=== PATIENT | female | born 1945 | race African-American/Black ===

== ENCOUNTER 2021-10-01 09:42 | Inpatient (IN) | payer OTHER, MEDICAID ==
[2021-10-01] MEDS ORDERED: Sodium Bicarb 50 MEQ/50 ML Abboject 8.4% SYRINGE ONE ×3 (09:44→11:59)
[2021-10-01] MEDS ORDERED: Calcium Chloride 1 GM/10 ML Abboject SYRINGE ONE (09:44)
[2021-10-01] MEDS ORDERED: Fentanyl 100 MCG/2 ML VIAL ONE ×2 (09:53→10:00)
[2021-10-01] MEDS ORDERED: Midazolam HCl 2 mg/2 ml Vial ONE ×2 (09:55→10:00)
[2021-10-01] MEDS ORDERED: Fentanyl CADD 100 ML IV SCH (10:00)
[2021-10-01 10:27] LABS: PTT 63.3 sec (22.9-36.1)
[2021-10-01] MEDS ORDERED: Norepinephrine 4 MG/4 ML VIAL ONE ×2 (10:32→10:34)
[2021-10-01 10:39] LABS: Prothrombin Time Greater than 150.0 sec (12.0-14.7)
[2021-10-01 10:42] LABS: Analyzer IN Cardio ER; Base Excess -27.5 mEq/L (-2.0 to +3.0); Calcium, Ionized (venous) 1.49 mmol/L (1.16-1.32); Chloride (VBG) 106 mmol/L (98-106); Hemoglobin (Hb) 4.1 g/dL (11.7-16.1); Potassium (VBG) 6.48 mmol/L (3.70-5.30); Sodium 141.5 mmol/L (133-146)
[2021-10-01 10:43] LABS: Actual Bicarbonate (HCO3v) 6 mEq/L (22-28); pH (venous) 6.65 (7.32-7.43)
[2021-10-01 10:46] LABS: ALT (SGPT) 437 U/L (8-55); AST (SGOT) 532 U/L (5-34); Albumin 2.8 g/dL (3.4-4.8); Alkaline Phosphatase 47 U/L (40-110); BUN (Urea Nitrogen) 32 mg/dL (9.8-20.1); Bilirubin, Total 0.4 mg/dL (0.2-1.2); CK (CPK) 480 U/L (29-168); Calc. Creatinine Clearance 0 mL/min (70-130); Calcium 11.7 mg/dL (7.8-10.44); Chloride 106 mmol/L (98-107); Estimated GFR 39; Glucose 177 mg/dL (83-110); Potassium 6.4 mmol/L (3.5-5.1); Protein, Total 4.8 g/dL (5.8-8.1); Sodium 144 mmol/L (136-145)
[2021-10-01 10:51] LABS: Hemoglobin 3.1 g/dL (12.0-16.0); Mean Corpuscular HGB CONC 29.8 g/dL (32.0-36.0); Mean Corpuscular Hemoglobin 25.3 pg (27.0-31.0); Mean Corpuscular Volume 85.1 fL (78.0-98.0); Mean Platelet Volume 8.4 fL (7.4-10.4); Platelet Count 189 thou/uL (130-400); RBC Distribution Width 23.8 % (11.5-14.5); Red Blood Cell (RBC) Count 1.22 mill/uL (4.20-5.40); Reflex for Review?? YES; White Blood Cell (WBC) Count 14.8 thou/uL (4.8-10.8)
[2021-10-01 10:53] LABS: SARS-CoV-2 NAA Rapid Test Not Detected (NotDetected)
[2021-10-01 10:53] LABS: Carbon Dioxide Less than 8 mmol/L (23-31)
[2021-10-01 11:02] LABS: CKMB 26.1 ng/mL (0-6.6)
[2021-10-01 11:15] LABS: Anisocytosis MODERATE=16-30 cells (100X) (0-5/hpf); Band 5 % (5-11); Elliptocytes SLIGHT = 2-5 cells (100X) (0-1/hpf); Hypochromia SLIGHT = 6-15 cells (100X) (0-5/hpf); Lymphocytes 37 % (21-51); MDiff Complete? YES; Metamyelocyte 1 % (0-0); Monocytes 1 % (0-10); Neutrophil 55 % (42-75); Nucleated RBC 21 % (0); Ovalocytes SLIGHT = 2-5 cells (100X) (0-1/hpf); Platelet Morphology Comment Appears Adequate; Polychromasia MARKED = >4 cells (100X) (0-2/hpf); Reactive Lymphocytes 1 % (0-10); Schistocytes SLIGHT = 2-5 cells (100X) (0-1/hpf)
[2021-10-01 11:44] LABS: Actual Bicarbonate (HCO3a) 6.8 mEq/L (22-28); Analyzer IN Cardio ER; Base Excess (BEa) -21.2 mEq/L (-2.0 to +3.0); Calcium, Ionized (arterial) 1.27 mmol/L (1.12-1.30); Carboxyhemoglobin (COHb) 0.2 gm% (0.0-3.0); Hemoglobin (Hb) 9.4 g/dL (12.0-16.0); O2 Tension (PaO2), arterial 107.4 mmHg (> 70.0); Potassium - ABG Lab 5.89 mmol/L (3.70-5.30)
[2021-10-01 11:48] LABS: CO2 Tension 22.3 mmHg (35.0-45.0); Puncture Site Arterial Line
[2021-10-01 11:49] LABS: ALV-art Gradient 577.725 mmHg (0-20)
[2021-10-01 11:57] LABS: Bilirubin Negative (Negative); Blood, Urine 3+ (Negative); Clarity Clear (Clear); Glucose, Urine (Dipstick) Normal (Negative); Ketone, Urine Negative (Negative); Leukocyte Negative Leu/uL (Negative); Nitrite Negative (Negative); Protein, Urine (Dipstick) 10 mg/dL (Neg-Trace); RBC/HPF Greater than 50 HPF (0-3); Specific Gravity, Urine 1.019 (1.002-1.036); Squamous Epithelial 0-3 HPF (0-3); Urobilinogen Normal mg/dL (Less than 2); WBC/HPF 0-3 HPF (0-3)
[2021-10-01 11:59] LABS: Bacteria/HPF Rare-Few HPF (None Seen)
[2021-10-01 12:17] LABS: Hemoglobin 9.1 g/dL (12.0-16.0); Mean Corpuscular HGB CONC 32.1 g/dL (32.0-36.0); Mean Corpuscular Hemoglobin 28.7 pg (27.0-31.0); Mean Corpuscular Volume 89.5 fL (78.0-98.0); Mean Platelet Volume 7.9 fL (7.4-10.4); Platelet Count 173 thou/uL (130-400); RBC Distribution Width 15.7 % (11.5-14.5); Red Blood Cell (RBC) Count 3.16 mill/uL (4.20-5.40)
[2021-10-01 12:41] LABS: Band 9 % (5-11); Burr Cells SLIGHT = 2-5 cells (100X) (0-1/hpf); Lymphocytes 12 % (21-51); MDiff Complete? YES; Monocytes 3 % (0-10); Neutrophil 73 % (42-75); Nucleated RBC 15 % (0); Ovalocytes SLIGHT = 2-5 cells (100X) (0-1/hpf); Platelet Morphology Comment Appears Adequate; Polychromasia SLIGHT = 2-3 cells (100X) (0-2/hpf); Reactive Lymphocytes 3 % (0-10)
[2021-10-01 12:42] LABS: ALT (SGPT) 615 U/L (8-55); AST (SGOT) 683 U/L (5-34); Albumin 2.8 g/dL (3.4-4.8); Alkaline Phosphatase 70 U/L (40-110); Anion Gap 41 mmol/L (10-20); BUN (Urea Nitrogen) 33 mg/dL (9.8-20.1); Bilirubin, Total 0.3 mg/dL (0.2-1.2); Calc. Creatinine Clearance 0 mL/min (70-130); Calcium 10.8 mg/dL (7.8-10.44); Carbon Dioxide 13 mmol/L (23-31); Chloride 103 mmol/L (98-107); Estimated GFR 39; Glucose 131 mg/dL (83-110); Potassium 5.9 mmol/L (3.5-5.1); Protein, Total 4.8 g/dL (5.8-8.1); Sodium 151 mmol/L (136-145)
[2021-10-01] MEDS ORDERED: Pantoprazole 80 MG in Sodium Chloride 0.9% 100 ML IVPB SCH (12:45)
[2021-10-01 12:48] LABS: White Blood Cell (WBC) Count 18.5 thou/uL (4.8-10.8)
[2021-10-01] MEDS ORDERED: Ventilator Sedation Protocol FS PRN (13:30)
[2021-10-01 13:33] LABS: Actual Bicarbonate (HCO3a) 16.3 mEq/L (22-28); Base Excess (BEa) -9.1 mEq/L (-2.0 to +3.0); CO2 Tension 33.6 mmHg (35.0-45.0); Carboxyhemoglobin (COHb) 0.3 gm% (0.0-3.0); Hemoglobin (Hb) 9.9 g/dL (12.0-16.0); O2 Tension (PaO2), arterial 83.8 mmHg (> 70.0); Potassium - ABG Lab 4.48 mmol/L (3.70-5.30); pH, Arterial 7.31 (7.35-7.45)
[2021-10-01 13:35] LABS: Puncture Site Arterial Line
[2021-10-01] MEDS ORDERED: Midazolam HCl 2 mg/2 ml Vial SLOW IVP PRN (13:47)
[2021-10-01] MEDS ORDERED: DISCONTINUE PREVIOUS NARCOTIC PAIN MEDICATIONS AND BENZODIAZEPINES FS SCH (14:00)
[2021-10-01] MEDS ORDERED: Propofol BOLUS 1,000 MG/100 ML VIAL IV PRN (14:00)
[2021-10-01] MEDS ORDERED: Piperacillin/Tazobactam 3.375 GM in Sodium Chloride 0.9% 100 ML IVPB SCH ×2 (14:00→18:00)
[2021-10-01] MEDS ORDERED: Morphine 4 MG/ML VIAL SLOW IVP PRN (14:00)
[2021-10-01] MEDS ORDERED: Dextrose 5% in Water 1,000 ML IV PRN (14:00)
[2021-10-01] MEDS ORDERED: Fentanyl BOLUS 250 ML IVPB PRN (14:00)
[2021-10-01] MEDS ORDERED: Propofol 1,000 MG/100 ML VIAL IV PRN (14:00)
[2021-10-01] MEDS ORDERED: Dextrose 50% Abboject 50 ML SYRINGE IVP PRN (14:00)
[2021-10-01] MEDS ORDERED: Iopamidol-370 76% 500 ML 1 ML ONE (14:04)
[2021-10-01] MEDS: Vasopressin 20 UNIT, Admixture Fee 1 EACH in Sodium Chloride 0.9% 50 ML IV SCH (14:51)
[2021-10-01 15:03] LABS: Lactic Acid 16.9 mmol/L (0.5-2.2)
[2021-10-01 15:06] LABS: Prothrombin Time 22.6 sec (12.0-14.7)
[2021-10-01 15:48] LABS: CKMB 42.9 ng/mL (0-6.6)
[2021-10-01 16:43] LABS: Hemoglobin 10.3 g/dL (12.0-16.0)
[2021-10-01 18:06] LABS: Lactic Acid 13.4 mmol/L (0.5-2.2)
[2021-10-01] MEDS: Sodium Bicarbonate 150 MEQ in Dextrose 5% in Water 1,000 ML IV SCH (18:10)
[2021-10-01] MEDS: Piperacillin/Tazobactam 3.375 GM in Sodium Chloride 0.9% 100 ML IVPB SCH (18:10)
[2021-10-01] MEDS: Insulin Regular 300 UNITS/3 ML VIAL SC PRN ×2 (18:10→22:19)
[2021-10-01] MEDS: NOREPINEPHRINE 8 MG/250 ML-D5W 250 ML IVPB SCH (18:20)
[2021-10-01] MEDS: Pantoprazole 80 MG, Admixture Fee 1 EACH in Sodium Chloride 0.9% 100 ML IVPB SCH (18:35)
[2021-10-01 19:09] LABS: Chloride 102 mmol/L (98-107); Potassium 3.7 mmol/L (3.5-5.1); Sodium 148 mmol/L (136-145)
[2021-10-01 19:10] LABS: Glucose 267 mg/dL (83-110)
[2021-10-01 19:11] LABS: Anion Gap 33 mmol/L (10-20); Carbon Dioxide 17 mmol/L (23-31)
[2021-10-01 19:13] LABS: Calc. Creatinine Clearance 40 mL/min (70-130); Estimated GFR 32
[2021-10-01 19:14] LABS: BUN (Urea Nitrogen) 39 mg/dL (9.8-20.1)
[2021-10-01 19:16] LABS: Calcium 8.8 mg/dL (7.8-10.44)
[2021-10-02] MEDS: NOREPINEPHRINE 8 MG/250 ML-D5W 250 ML IVPB SCH ×3 (00:41→16:16)
[2021-10-02] MEDS: Piperacillin/Tazobactam 3.375 GM in Sodium Chloride 0.9% 100 ML IVPB SCH ×3 (02:10→17:34)
[2021-10-02] MEDS ORDERED: Fentanyl CADD 100 ML ONE ×2 (02:25→22:14)
[2021-10-02] MEDS: Fentanyl CADD 100 ML IV SCH ×2 (02:28→22:18)
[2021-10-02] MEDS: Insulin Regular 300 UNITS/3 ML VIAL SC PRN (04:15)
[2021-10-02 05:34] LABS: Band 28 % (5-11); Hemoglobin 11.2 g/dL (12.0-16.0); Lymphocytes 4 % (21-51); MDiff Complete? YES; Mean Corpuscular HGB CONC 33.8 g/dL (32.0-36.0); Mean Corpuscular Hemoglobin 28.5 pg (27.0-31.0); Mean Corpuscular Volume 84.2 fL (78.0-98.0); Mean Platelet Volume 8.8 fL (7.4-10.4); Monocytes 5 % (0-10); Neutrophil 63 % (42-75); Nucleated RBC 16 % (0); Platelet Count 236 thou/uL (130-400); Platelet Morphology Comment Appears Adequate; Polychromasia SLIGHT = 2-3 cells (100X) (0-2/hpf); Red Blood Cell (RBC) Count 3.94 mill/uL (4.20-5.40); White Blood Cell (WBC) Count 25.3 thou/uL (4.8-10.8)
[2021-10-02] MEDS ORDERED: Dextrose 5% in Water 1,000 ML IV PRN (05:42)
[2021-10-02] MEDS ORDERED: HumaLOG 300 UNITS/3 ML VIAL SC PRN (05:42)
[2021-10-02 05:57] LABS: ALT (SGPT) 873 U/L (8-55); AST (SGOT) 2029 U/L (5-34); Albumin 2.7 g/dL (3.4-4.8); Alkaline Phosphatase 66 U/L (40-110); Anion Gap 23 mmol/L (10-20); BUN (Urea Nitrogen) 47 mg/dL (9.8-20.1); Bilirubin, Total 1.4 mg/dL (0.2-1.2); Calc. Creatinine Clearance 34 mL/min (70-130); Calcium 8.1 mg/dL (7.8-10.44); Carbon Dioxide 28 mmol/L (23-31); Chloride 98 mmol/L (98-107); Estimated GFR 26; Globulin 2.4 g/dL (2.4-3.5); Glucose 208 mg/dL (83-110); Potassium 3.3 mmol/L (3.5-5.1); Protein, Total 5.1 g/dL (5.8-8.1); Sodium 146 mmol/L (136-145)
[2021-10-02] MEDS: Sodium Bicarbonate 150 MEQ in Dextrose 5% in Water 1,000 ML IV SCH (06:14)
[2021-10-02] MEDS: Vasopressin 20 UNIT, Admixture Fee 1 EACH in Sodium Chloride 0.9% 50 ML IV SCH ×3 (06:14→22:23)
[2021-10-02 06:44] LABS: INR-International Normal Ratio 3.3; PTT 40.3 sec (22.9-36.1)
[2021-10-02] MEDS ORDERED: Electrolyte Replacement Protocol 1 EACH FS ONE (07:42)
[2021-10-02] MEDS ORDERED: Electrolyte Replacement Protocol FS PRN (08:00)
[2021-10-02 08:18] LABS: Actual Bicarbonate (HCO3a) 30.4 mEq/L (22-28); Base Excess (BEa) 3.4 mEq/L (-2.0 to +3.0); CO2 Tension 29.6 mmHg (35.0-45.0); Calcium, Ionized (arterial) 0.99 mmol/L (1.12-1.30); Carboxyhemoglobin (COHb) 0.3 gm% (0.0-3.0); Hemoglobin (Hb) 12.4 g/dL (12.0-16.0); O2 Tension (PaO2), arterial 89.1 mmHg (> 70.0); Potassium - ABG Lab 2.87 mmol/L (3.70-5.30); Puncture Site Arterial Line; pH, Arterial 7.63 (7.35-7.45)
[2021-10-02] MEDS ORDERED: Potassium Chloride 20 MEQ in Premix Bag 1 BAG IVPB SCH (08:45)
[2021-10-02] MEDS ORDERED: Potassium Chloride 40 MEQ in Premix Bag 1 BAG IVPB SCH ×2 (09:00→21:30)
[2021-10-02] MEDS: HumaLOG 300 UNITS/3 ML VIAL SC PRN (10:18)
[2021-10-02] MEDS: Pantoprazole 80 MG, Admixture Fee 1 EACH in Sodium Chloride 0.9% 100 ML IVPB SCH ×2 (14:49→22:23)
[2021-10-03] MEDS: Piperacillin/Tazobactam 3.375 GM in Sodium Chloride 0.9% 100 ML IVPB SCH ×3 (02:33→17:02)
[2021-10-03 05:11] LABS: Albumin 2.9 g/dL (3.4-4.8); Alkaline Phosphatase 64 U/L (40-110); Anion Gap 17 mmol/L (10-20); BUN (Urea Nitrogen) 41 mg/dL (9.8-20.1); Bilirubin, Total 1.7 mg/dL (0.2-1.2); Calc. Creatinine Clearance 39 mL/min (70-130); Calcium 8.5 mg/dL (7.8-10.44); Carbon Dioxide 28 mmol/L (23-31); Chloride 105 mmol/L (98-107); Estimated GFR 31; Globulin 2.4 g/dL (2.4-3.5); Glucose 137 mg/dL (83-110); Protein, Total 5.3 g/dL (5.8-8.1); Sodium 147 mmol/L (136-145)
[2021-10-03 05:12] LABS: ALT (SGPT) 759 U/L (8-55); AST (SGOT) 743 U/L (5-34)
[2021-10-03 05:25] LABS: Band 8 % (5-11); Hemoglobin 10.9 g/dL (12.0-16.0); Lymphocytes 6 % (21-51); MDiff Complete? YES; Mean Corpuscular HGB CONC 32.7 g/dL (32.0-36.0); Mean Corpuscular Hemoglobin 28.4 pg (27.0-31.0); Mean Corpuscular Volume 86.8 fL (78.0-98.0); Mean Platelet Volume 9.3 fL (7.4-10.4); Monocytes 3 % (0-10); Neutrophil 83 % (42-75); Nucleated RBC 8 % (0); Platelet Count 191 thou/uL (130-400); RBC Distribution Width 16.6 % (11.5-14.5); Red Blood Cell (RBC) Count 3.83 mill/uL (4.20-5.40); White Blood Cell (WBC) Count 25.7 thou/uL (4.8-10.8)
[2021-10-03 05:31] LABS: PTT 44.7 sec (22.9-36.1); Prothrombin Time 46.8 sec (12.0-14.7)
[2021-10-03 05:43] LABS: INR-International Normal Ratio 4.9
[2021-10-03] MEDS ORDERED: Potassium Chloride 40 MEQ in Premix Bag 1 BAG IVPB SCH (06:00)
[2021-10-03 06:26] LABS: Magnesium 2.3 mg/dL (1.6-2.6)
[2021-10-03] MEDS: Phytonadione 10 MG/ML AMP SC SCH (09:26)
[2021-10-03] MEDS: Pantoprazole 80 MG, Admixture Fee 1 EACH in Sodium Chloride 0.9% 100 ML IVPB SCH ×2 (10:50→22:25)
[2021-10-03 12:27] LABS: Potassium 3.5 mmol/L (3.5-5.1)
[2021-10-03] MEDS: Vasopressin 20 UNIT, Admixture Fee 1 EACH in Sodium Chloride 0.9% 50 ML IV SCH ×2 (14:08→22:24)
[2021-10-03] MEDS ORDERED: Fentanyl 100 MCG/2 ML VIAL ONE (16:29)
[2021-10-03] MEDS: Fentanyl CADD 100 ML IV SCH (16:51)
[2021-10-03] MEDS ORDERED: Potassium Bicarbonate/Cit Ac 20 MEQ TAB PO SCH (19:30)
[2021-10-03] MEDS: NOREPINEPHRINE 8 MG/250 ML-D5W 250 ML IVPB SCH (22:25)
[2021-10-03] MEDS: HumaLOG 300 UNITS/3 ML VIAL SC PRN (22:28)
[2021-10-04 01:29] LABS: Potassium 3.4 mmol/L (3.5-5.1)
[2021-10-04] MEDS: Piperacillin/Tazobactam 3.375 GM in Sodium Chloride 0.9% 100 ML IVPB SCH ×3 (02:24→17:51)
[2021-10-04] MEDS ORDERED: Potassium Chloride 40 MEQ in Premix Bag 1 BAG IVPB SCH (02:30)
[2021-10-04] MEDS: HumaLOG 300 UNITS/3 ML VIAL SC PRN ×4 (04:20→22:18)
[2021-10-04 07:50] LABS: Actual Bicarbonate (HCO3a) 23.3 mEq/L (22-28); Analyzer IN Cardio ER; CO2 Tension 29.4 mmHg (35.0-45.0); Calcium, Ionized (arterial) 1.15 mmol/L (1.12-1.30); Carboxyhemoglobin (COHb) 0.3 gm% (0.0-3.0); Hemoglobin (Hb) 10.5 g/dL (12.0-16.0); O2 Tension (PaO2), arterial 110.9 mmHg (> 70.0); Potassium - ABG Lab 3.58 mmol/L (3.70-5.30); pH, Arterial 7.52 (7.35-7.45)
[2021-10-04 08:00] LABS: Puncture Site RRA
[2021-10-04 08:55] LABS: INR-International Normal Ratio 3.2; Prothrombin Time 33.5 sec (12.0-14.7)
[2021-10-04 08:56] LABS: PTT 46.5 sec (22.9-36.1)
[2021-10-04 09:03] LABS: ALT (SGPT) 519 U/L (8-55); AST (SGOT) 238 U/L (5-34); Albumin 2.8 g/dL (3.4-4.8); Alkaline Phosphatase 67 U/L (40-110); Anion Gap 12 mmol/L (10-20); BUN (Urea Nitrogen) 42 mg/dL (9.8-20.1); Bilirubin, Total 1.3 mg/dL (0.2-1.2); Calc. Creatinine Clearance 49 mL/min (70-130); Calcium 8.3 mg/dL (7.8-10.44); Carbon Dioxide 26 mmol/L (23-31); Chloride 110 mmol/L (98-107); Estimated GFR 42; Globulin 2.4 g/dL (2.4-3.5); Glucose 172 mg/dL (83-110); Magnesium 2.3 mg/dL (1.6-2.6); Protein, Total 5.2 g/dL (5.8-8.1); Sodium 144 mmol/L (136-145)
[2021-10-04] MEDS: Phytonadione 10 MG/ML AMP SC SCH (09:11)
[2021-10-04 09:14] LABS: Band 23 % (5-11); Hemoglobin 10.1 g/dL (12.0-16.0); Hypochromia SLIGHT = 6-15 cells (100X) (0-5/hpf); Lymphocytes 4 % (21-51); MDiff Complete? YES; Mean Corpuscular HGB CONC 31.6 g/dL (32.0-36.0); Mean Corpuscular Hemoglobin 28.8 pg (27.0-31.0); Mean Platelet Volume 9.4 fL (7.4-10.4); Monocytes 1 % (0-10); Neutrophil 72 % (42-75); Nucleated RBC 1 % (0); Ovalocytes SLIGHT = 2-5 cells (100X) (0-1/hpf); Platelet Count 170 thou/uL (130-400); Platelet Morphology Comment Appears Adequate; Polychromasia MODERATE = 3-4 cells (100X) (0-2/hpf); RBC Distribution Width 16.6 % (11.5-14.5); Schistocytes SLIGHT = 2-5 cells (100X) (0-1/hpf); Target Cells SLIGHT = 2-5 cells (100X) (0-1/hpf); White Blood Cell (WBC) Count 20.4 thou/uL (4.8-10.8)
[2021-10-04] MEDS: Pantoprazole 80 MG, Admixture Fee 1 EACH in Sodium Chloride 0.9% 100 ML IVPB SCH ×2 (09:33→19:50)
[2021-10-04] MEDS: Fentanyl CADD 100 ML IV SCH (12:04)
[2021-10-04] MEDS: Vasopressin 20 UNIT, Admixture Fee 1 EACH in Sodium Chloride 0.9% 50 ML IV SCH ×2 (14:43→18:54)
[2021-10-05] MEDS: Piperacillin/Tazobactam 3.375 GM in Sodium Chloride 0.9% 100 ML IVPB SCH ×3 (03:00→17:34)
[2021-10-05] MEDS: Pantoprazole 80 MG, Admixture Fee 1 EACH in Sodium Chloride 0.9% 100 ML IVPB SCH ×3 (03:01→21:23)
[2021-10-05] MEDS: NOREPINEPHRINE 8 MG/250 ML-D5W 250 ML IVPB SCH (03:01)
[2021-10-05] MEDS: Vasopressin 20 UNIT, Admixture Fee 1 EACH in Sodium Chloride 0.9% 50 ML IV SCH ×3 (03:02→21:24)
[2021-10-05] MEDS: HumaLOG 300 UNITS/3 ML VIAL SC PRN ×2 (04:27→10:13)
[2021-10-05 04:30] LABS: ALT (SGPT) 383 U/L (8-55); AST (SGOT) 120 U/L (5-34); Albumin 2.8 g/dL (3.4-4.8); Alkaline Phosphatase 73 U/L (40-110); Anion Gap 13 mmol/L (10-20); BUN (Urea Nitrogen) 33 mg/dL (9.8-20.1); Bilirubin, Total 1.2 mg/dL (0.2-1.2); Calc. Creatinine Clearance 60 mL/min (70-130); Calcium 8.4 mg/dL (7.8-10.44); Carbon Dioxide 24 mmol/L (23-31); Chloride 111 mmol/L (98-107); Estimated GFR 52; Globulin 2.5 g/dL (2.4-3.5); Glucose 157 mg/dL (83-110); Potassium 3.8 mmol/L (3.5-5.1); Protein, Total 5.3 g/dL (5.8-8.1); Sodium 144 mmol/L (136-145)
[2021-10-05 04:45] LABS: Anisocytosis SLIGHT = 6-15 cells (100X) (0-5/hpf); Band 14 % (5-11); Hemoglobin 9.8 g/dL (12.0-16.0); Lymphocytes 5 % (21-51); MDiff Complete? YES; Mean Corpuscular HGB CONC 31.6 g/dL (32.0-36.0); Mean Corpuscular Hemoglobin 28.6 pg (27.0-31.0); Mean Corpuscular Volume 90.5 fL (78.0-98.0); Mean Platelet Volume 10.1 fL (7.4-10.4); Monocytes 9 % (0-10); Neutrophil 72 % (42-75); Platelet Count 171 thou/uL (130-400); RBC Distribution Width 16.7 % (11.5-14.5); Red Blood Cell (RBC) Count 3.44 mill/uL (4.20-5.40); White Blood Cell (WBC) Count 18.3 thou/uL (4.8-10.8)
[2021-10-05 05:05] LABS: INR-International Normal Ratio 1.8; Prothrombin Time 21.1 sec (12.0-14.7)
[2021-10-05 05:06] LABS: PTT 32.5 sec (22.9-36.1)
[2021-10-05] MEDS ORDERED: Fentanyl CADD 100 ML ONE (06:28)
[2021-10-05] MEDS: Fentanyl CADD 100 ML IV SCH (06:37)
[2021-10-05] MEDS: Digoxin 0.5 MG/2 ML AMP SLOW IVP SCH ×3 (07:58→12:11)
[2021-10-06] MEDS: Piperacillin/Tazobactam 3.375 GM in Sodium Chloride 0.9% 100 ML IVPB SCH ×3 (03:12→17:15)
[2021-10-06] MEDS ORDERED: Acetaminophen 325 MG TAB PO SCH (04:45)
[2021-10-06 04:53] LABS: #Eosinphils 0.1 thou/uL (0.0-0.7); #Lymphocytes 0.8 thou/uL (1.20-3.40); #Monocytes 0.8 thou/uL (0.11-0.59); #Neutrophils 17.1 thou/uL (1.40-6.50); %Basophils 0.1 % (0.0-1.0); %Eosinophils 0.4 % (0.0-10.0); %Monocytes 4.4 % (0.0-10.0); %Neutrophils 91.2 % (42.0-75.0); Hemoglobin 9.1 g/dL (12.0-16.0); Mean Corpuscular Hemoglobin 28.3 pg (27.0-31.0); Mean Corpuscular Volume 91.4 fL (78.0-98.0); Mean Platelet Volume 10.8 fL (7.4-10.4); Platelet Count 145 thou/uL (130-400); RBC Distribution Width 16.6 % (11.5-14.5); Red Blood Cell (RBC) Count 3.21 mill/uL (4.20-5.40); White Blood Cell (WBC) Count 18.7 thou/uL (4.8-10.8)
[2021-10-06 05:12] LABS: INR-International Normal Ratio 1.4; PTT 29.5 sec (22.9-36.1); Prothrombin Time 17.3 sec (12.0-14.7)
[2021-10-06 05:17] LABS: ALT (SGPT) 279 U/L (8-55); AST (SGOT) 75 U/L (5-34); Albumin 2.8 g/dL (3.4-4.8); Alkaline Phosphatase 84 U/L (40-110); Anion Gap 15 mmol/L (10-20); BUN (Urea Nitrogen) 28 mg/dL (9.8-20.1); Bilirubin, Total 1.7 mg/dL (0.2-1.2); Calc. Creatinine Clearance 69 mL/min (70-130); Calcium 8.7 mg/dL (7.8-10.44); Carbon Dioxide 22 mmol/L (23-31); Chloride 111 mmol/L (98-107); Estimated GFR 61; Globulin 2.7 g/dL (2.4-3.5); Glucose 85 mg/dL (83-110); Protein, Total 5.5 g/dL (5.8-8.1); Sodium 144 mmol/L (136-145)
[2021-10-06] MEDS ORDERED: Lactated Ringer's 250 ML IV SCH (08:45)
[2021-10-06] MEDS: Digoxin 0.5 MG/2 ML AMP SLOW IVP SCH (09:34)
[2021-10-06] MEDS ORDERED: Sodium Chloride 0.9% 1,000 ML IV SCH (10:00)
[2021-10-06] MEDS: Pantoprazole 40 MG VIAL IVP SCH (20:37)
[2021-10-07] MEDS: Piperacillin/Tazobactam 3.375 GM in Sodium Chloride 0.9% 100 ML IVPB SCH ×3 (02:26→17:57)
[2021-10-07 03:59] LABS: INR-International Normal Ratio 1.3; PTT 29.5 sec (22.9-36.1)
[2021-10-07 04:07] LABS: ALT (SGPT) 202 U/L (8-55); AST (SGOT) 61 U/L (5-34); Albumin 2.7 g/dL (3.4-4.8); Alkaline Phosphatase 89 U/L (40-110); Anion Gap 13 mmol/L (10-20); BUN (Urea Nitrogen) 24 mg/dL (9.8-20.1); Bilirubin, Total 1.5 mg/dL (0.2-1.2); Calc. Creatinine Clearance 66 mL/min (70-130); Carbon Dioxide 23 mmol/L (23-31); Chloride 113 mmol/L (98-107); Estimated GFR 57; Globulin 2.9 g/dL (2.4-3.5); Glucose 78 mg/dL (83-110); Potassium 3.8 mmol/L (3.5-5.1); Protein, Total 5.6 g/dL (5.8-8.1); Sodium 145 mmol/L (136-145)
[2021-10-07 05:10] LABS: Band 13 % (5-11); Lymphocytes 6 % (21-51); MDiff Complete? YES; Mean Corpuscular HGB CONC 31.9 g/dL (32.0-36.0); Mean Corpuscular Hemoglobin 29.3 pg (27.0-31.0); Mean Corpuscular Volume 91.7 fL (78.0-98.0); Mean Platelet Volume 10.5 fL (7.4-10.4); Monocytes 1 % (0-10); Neutrophil 80 % (42-75); Platelet Count 213 thou/uL (130-400); RBC Distribution Width 17.3 % (11.5-14.5); Red Blood Cell (RBC) Count 3.42 mill/uL (4.20-5.40); White Blood Cell (WBC) Count 18.2 thou/uL (4.8-10.8)
[2021-10-07] MEDS: Digoxin 0.5 MG/2 ML AMP SLOW IVP SCH (07:47)
[2021-10-07] MEDS: Pantoprazole 40 MG VIAL IVP SCH ×2 (07:47→20:39)
[2021-10-07] MEDS: Ezetimibe 10 MG TAB PO SCH (07:48)
[2021-10-07] MEDS ORDERED: Digoxin 0.25 MG TAB PO SCH (09:00)
[2021-10-07] MEDS ORDERED: Aspirin 81 mg Enteric Coated Tablet PO SCH ×2 (11:51→14:15)
[2021-10-07] MEDS ORDERED: Bisacodyl 10 MG SUPP PR SCH (12:00)
[2021-10-07] MEDS ORDERED: Iron, Sodium Ferric Gluconate 250 MG in Sodium Chloride 0.9% 250 ML 250 ML IVPB SCH (13:30)
[2021-10-07 14:17] LABS: Actual Bicarbonate (HCO3a) 21.5 mEq/L (22-28); Base Excess (BEa) -0.4 mEq/L (-2.0 to +3.0); CO2 Tension 26.7 mmHg (35.0-45.0); Calcium, Ionized (arterial) 1.22 mmol/L (1.12-1.30); Carboxyhemoglobin (COHb) 0.6 gm% (0.0-3.0); Hemoglobin (Hb) 11.1 g/dL (12.0-16.0); Potassium - ABG Lab 3.52 mmol/L (3.70-5.30); pH, Arterial 7.52 (7.35-7.45)
[2021-10-07] MEDS ORDERED: Aspirin Chewable 81 MG TAB ONE (14:17)
[2021-10-07] MEDS ORDERED: Aspirin 81 mg Enteric Coated Tablet ONE (14:18)
[2021-10-07 14:21] LABS: O2 Tension (PaO2), arterial 53.3 mmHg (> 70.0); Puncture Site RRA
[2021-10-07] MEDS ORDERED: Furosemide 20 MG/2 ML VIAL SLOW IVP SCH (15:15)
[2021-10-07] MEDS: Atorvastatin Calcium 40 MG TAB PO SCH (20:38)
[2021-10-08] MEDS: Piperacillin/Tazobactam 3.375 GM in Sodium Chloride 0.9% 100 ML IVPB SCH (03:01)
[2021-10-08 04:44] LABS: #Eosinphils 0.1 thou/uL (0.0-0.7); #Monocytes 0.9 thou/uL (0.11-0.59); #Neutrophils 12.8 thou/uL (1.40-6.50); %Eosinophils 0.7 % (0.0-10.0); %Monocytes 6.1 % (0.0-10.0); %Neutrophils 86.1 % (42.0-75.0); Hemoglobin 10.5 g/dL (12.0-16.0); Mean Corpuscular HGB CONC 33.7 g/dL (32.0-36.0); Mean Corpuscular Hemoglobin 30.8 pg (27.0-31.0); Mean Corpuscular Volume 91.5 fL (78.0-98.0); Mean Platelet Volume 9.8 fL (7.4-10.4); Platelet Count 262 thou/uL (130-400); RBC Distribution Width 17.1 % (11.5-14.5); Red Blood Cell (RBC) Count 3.42 mill/uL (4.20-5.40); White Blood Cell (WBC) Count 14.9 thou/uL (4.8-10.8)
[2021-10-08 05:09] LABS: ALT (SGPT) 129 U/L (8-55); AST (SGOT) 43 U/L (5-34); Albumin 2.6 g/dL (3.4-4.8); Alkaline Phosphatase 73 U/L (40-110); Anion Gap 13 mmol/L (10-20); BUN (Urea Nitrogen) 18 mg/dL (9.8-20.1); Bilirubin, Total 1.5 mg/dL (0.2-1.2); Calc. Creatinine Clearance 70 mL/min (70-130); Calcium 8.8 mg/dL (7.8-10.44); Carbon Dioxide 24 mmol/L (23-31); Chloride 114 mmol/L (98-107); Estimated GFR 62; Globulin 2.5 g/dL (2.4-3.5); Glucose 90 mg/dL (83-110); Potassium 3.1 mmol/L (3.5-5.1); Protein, Total 5.1 g/dL (5.8-8.1); Sodium 148 mmol/L (136-145)
[2021-10-08] MEDS ORDERED: Potassium Chloride 20 MEQ in Premix Bag 1 BAG IVPB SCH ×2 (07:00→09:00)
[2021-10-08] MEDS ORDERED: Furosemide 40 MG/4 ML VIAL SLOW IVP SCH (07:45)
[2021-10-08] MEDS: Aspirin 81 mg Enteric Coated Tablet PO SCH (08:12)
[2021-10-08] MEDS: Ezetimibe 10 MG TAB PO SCH (08:13)
[2021-10-08] MEDS: Spironolactone 25 MG TAB PO SCH (08:13)
[2021-10-08] MEDS: Potassium Chloride 20 MEQ in Premix Bag 1 BAG IVPB SCH ×2 (08:13→10:01)
[2021-10-08] MEDS: Pantoprazole 40 MG VIAL IVP SCH (08:13)
[2021-10-08] MEDS ORDERED: Digoxin 0.25 MG TAB PO SCH (09:00)
[2021-10-08] MEDS ORDERED: Bisacodyl 10 MG SUPP PR SCH (17:15)
[2021-10-08] MEDS: Atorvastatin Calcium 40 MG TAB PO SCH (20:00)
[2021-10-09] MEDS ORDERED: Metoprolol Tartrate 5 MG/5 ML VIAL IVP SCH (02:18)
[2021-10-09] MEDS ORDERED: Lactated Ringer's 500 ML IV SCH (04:00)
[2021-10-09 04:11] LABS: #Eosinphils 0.2 thou/uL (0.0-0.7); #Lymphocytes 1.5 thou/uL (1.20-3.40); #Monocytes 0.8 thou/uL (0.11-0.59); #Neutrophils 13.7 thou/uL (1.40-6.50); %Eosinophils 1.3 % (0.0-10.0); %Lymphocytes 9.1 % (21.0-51.0); %Monocytes 4.9 % (0.0-10.0); %Neutrophils 84.7 % (42.0-75.0); Hemoglobin 11.9 g/dL (12.0-16.0); Mean Corpuscular HGB CONC 31.8 g/dL (32.0-36.0); Mean Corpuscular Hemoglobin 28.8 pg (27.0-31.0); Mean Corpuscular Volume 90.6 fL (78.0-98.0); Mean Platelet Volume 9.7 fL (7.4-10.4); Platelet Count 373 thou/uL (130-400); RBC Distribution Width 18.1 % (11.5-14.5); Red Blood Cell (RBC) Count 4.14 mill/uL (4.20-5.40); White Blood Cell (WBC) Count 16.1 thou/uL (4.8-10.8)
[2021-10-09 04:28] LABS: ALT (SGPT) 109 U/L (8-55); AST (SGOT) 40 U/L (5-34); Albumin 2.7 g/dL (3.4-4.8); Alkaline Phosphatase 75 U/L (40-110); Anion Gap 14 mmol/L (10-20); BUN (Urea Nitrogen) 17 mg/dL (9.8-20.1); Bilirubin, Total 1.6 mg/dL (0.2-1.2); Calc. Creatinine Clearance 69 mL/min (70-130); Calcium 9.5 mg/dL (7.8-10.44); Carbon Dioxide 24 mmol/L (23-31); Chloride 111 mmol/L (98-107); Estimated GFR 61; Globulin 2.8 g/dL (2.4-3.5); Glucose 107 mg/dL (83-110); Protein, Total 5.5 g/dL (5.8-8.1); Sodium 146 mmol/L (136-145)
[2021-10-09 06:54] LABS: Magnesium 1.9 mg/dL (1.6-2.6)
[2021-10-09] MEDS ORDERED: Amiodarone 150 MG, Admixture Fee 1 EACH in Dextrose 5% in Water 100 ML IVPB SCH (07:30)
[2021-10-09] MEDS: Aspirin 81 mg Enteric Coated Tablet PO SCH (08:16)
[2021-10-09] MEDS: Ezetimibe 10 MG TAB PO SCH (08:16)
[2021-10-09] MEDS: Potassium Chloride 20 MEQ in Premix Bag 1 BAG IVPB SCH ×2 (08:16→11:55)
[2021-10-09] MEDS: Spironolactone 25 MG TAB PO SCH (08:16)
[2021-10-09 17:13] LABS: Digoxin 0.65 ng/mL (0.8-2.0)
[2021-10-09] MEDS: Amiodarone 450 MG in Dextrose 5% in Water 250 ML IVPB SCH (17:43)
[2021-10-09] MEDS: Atorvastatin Calcium 40 MG TAB PO SCH (20:41)
[2021-10-09] MEDS: Enoxaparin Sodium 30 MG/0.3 ML SYRINGE SC SCH (20:41)
[2021-10-10 04:40] LABS: ALT (SGPT) 92 U/L (8-55); AST (SGOT) 54 U/L (5-34); Albumin 2.4 g/dL (3.4-4.8); Alkaline Phosphatase 68 U/L (40-110); Anion Gap 13 mmol/L (10-20); BUN (Urea Nitrogen) 15 mg/dL (9.8-20.1); Bilirubin, Total 1.3 mg/dL (0.2-1.2); Calc. Creatinine Clearance 77 mL/min (70-130); Calcium 8.6 mg/dL (7.8-10.44); Carbon Dioxide 20 mmol/L (23-31); Chloride 111 mmol/L (98-107); Estimated GFR 72; Globulin 2.8 g/dL (2.4-3.5); Glucose 105 mg/dL (83-110); Potassium 3.9 mmol/L (3.5-5.1); Protein, Total 5.2 g/dL (5.8-8.1); Sodium 140 mmol/L (136-145)
[2021-10-10 06:29] LABS: #Eosinphils 0.2 thou/uL (0.0-0.7); #Lymphocytes 1.7 thou/uL (1.20-3.40); #Monocytes 0.8 thou/uL (0.11-0.59); #Neutrophils 12.5 thou/uL (1.40-6.50); %Eosinophils 1.4 % (0.0-10.0); %Lymphocytes 11.1 % (21.0-51.0); %Monocytes 5.4 % (0.0-10.0); %Neutrophils 82.1 % (42.0-75.0); Anisocytosis SLIGHT = 6-15 cells (100X) (0-5/hpf); Band 2 % (5-11); Eosinophils 2 % (0-10); Hemoglobin 11.1 g/dL (12.0-16.0); Hypochromia SLIGHT = 6-15 cells (100X) (0-5/hpf); Large Platelets SLIGHT; Lymphocytes 17 % (21-51); MDiff Complete? YES; Mean Corpuscular HGB CONC 31.9 g/dL (32.0-36.0); Mean Corpuscular Hemoglobin 29.3 pg (27.0-31.0); Mean Corpuscular Volume 91.8 fL (78.0-98.0); Mean Platelet Volume 9.1 fL (7.4-10.4); Monocytes 4 % (0-10); Neutrophil 75 % (42-75); Platelet Count 375 thou/uL (130-400); Platelet Morphology Comment Appears Adequate; Polychromasia SLIGHT = 2-3 cells (100X) (0-2/hpf); Red Blood Cell (RBC) Count 3.81 mill/uL (4.20-5.40); Target Cells SLIGHT = 2-5 cells (100X) (0-1/hpf); White Blood Cell (WBC) Count 15.3 thou/uL (4.8-10.8)
[2021-10-10] MEDS: Spironolactone 25 MG TAB PO SCH (09:39)
[2021-10-10] MEDS: Aspirin 81 mg Enteric Coated Tablet PO SCH (09:39)
[2021-10-10] MEDS: Ezetimibe 10 MG TAB PO SCH (09:39)
[2021-10-10] MEDS: Amiodarone 450 MG in Dextrose 5% in Water 250 ML IVPB SCH (09:39)
[2021-10-10] MEDS ORDERED: Amiodarone 200 MG TAB PO SCH (11:45)
[2021-10-10] MEDS: Enoxaparin Sodium 30 MG/0.3 ML SYRINGE SC SCH (21:38)
[2021-10-10] MEDS: Atorvastatin Calcium 40 MG TAB PO SCH (21:38)
[2021-10-10] MEDS: Amiodarone 200 MG TAB PO SCH (21:39)
[2021-10-11 04:50] LABS: #Eosinphils 0.1 thou/uL (0.0-0.7); #Lymphocytes 1.4 thou/uL (1.20-3.40); #Monocytes 0.7 thou/uL (0.11-0.59); #Neutrophils 11.7 thou/uL (1.40-6.50); %Basophils 0.2 % (0.0-1.0); %Eosinophils 0.8 % (0.0-10.0); %Lymphocytes 10.2 % (21.0-51.0); %Monocytes 4.7 % (0.0-10.0); %Neutrophils 84.2 % (42.0-75.0); Mean Corpuscular HGB CONC 32.4 g/dL (32.0-36.0); Mean Corpuscular Hemoglobin 29.6 pg (27.0-31.0); Mean Corpuscular Volume 91.3 fL (78.0-98.0); Mean Platelet Volume 8.8 fL (7.4-10.4); Platelet Count 419 thou/uL (130-400); RBC Distribution Width 19.1 % (11.5-14.5); Red Blood Cell (RBC) Count 3.71 mill/uL (4.20-5.40); White Blood Cell (WBC) Count 13.9 thou/uL (4.8-10.8)
[2021-10-11 05:12] LABS: ALT (SGPT) 92 U/L (8-55); AST (SGOT) 50 U/L (5-34); Albumin 2.6 g/dL (3.4-4.8); Alkaline Phosphatase 68 U/L (40-110); Anion Gap 11 mmol/L (10-20); BUN (Urea Nitrogen) 10 mg/dL (9.8-20.1); Bilirubin, Total 1.5 mg/dL (0.2-1.2); Calc. Creatinine Clearance 79 mL/min (70-130); Calcium 8.8 mg/dL (7.8-10.44); Carbon Dioxide 22 mmol/L (23-31); Chloride 108 mmol/L (98-107); Estimated GFR 75; Globulin 2.8 g/dL (2.4-3.5); Glucose 90 mg/dL (83-110); Potassium 3.3 mmol/L (3.5-5.1); Protein, Total 5.4 g/dL (5.8-8.1); Sodium 138 mmol/L (136-145)
[2021-10-11] MEDS ORDERED: Potassium Chloride 20 MEQ in Premix Bag 1 BAG IVPB SCH (06:15)
[2021-10-11] MEDS ORDERED: Potassium Chloride 20 MEQ TAB PO SCH (09:30)
[2021-10-11] MEDS: Ezetimibe 10 MG TAB PO SCH (10:08)
[2021-10-11] MEDS: Amiodarone 200 MG TAB PO SCH ×2 (10:08→21:47)
[2021-10-11] MEDS: Spironolactone 25 MG TAB PO SCH (10:09)
[2021-10-11] MEDS: Aspirin 81 mg Enteric Coated Tablet PO SCH (10:09)
[2021-10-11] MEDS: Atorvastatin Calcium 40 MG TAB PO SCH (21:47)
[2021-10-11] MEDS: Enoxaparin Sodium 30 MG/0.3 ML SYRINGE SC SCH (21:48)
[2021-10-12 04:29] LABS: #Eosinphils 0.1 thou/uL (0.0-0.7); #Lymphocytes 1.6 thou/uL (1.20-3.40); #Monocytes 0.7 thou/uL (0.11-0.59); #Neutrophils 11.1 thou/uL (1.40-6.50); %Basophils 0.1 % (0.0-1.0); %Eosinophils 0.8 % (0.0-10.0); %Lymphocytes 11.9 % (21.0-51.0); %Monocytes 5.2 % (0.0-10.0); %Neutrophils 81.9 % (42.0-75.0); Hemoglobin 10.7 g/dL (12.0-16.0); Mean Corpuscular HGB CONC 32.8 g/dL (32.0-36.0); Mean Corpuscular Hemoglobin 29.8 pg (27.0-31.0); Mean Platelet Volume 8.6 fL (7.4-10.4); Platelet Count 397 thou/uL (130-400); RBC Distribution Width 18.2 % (11.5-14.5); Red Blood Cell (RBC) Count 3.58 mill/uL (4.20-5.40); White Blood Cell (WBC) Count 13.6 thou/uL (4.8-10.8)
[2021-10-12 04:49] LABS: ALT (SGPT) 75 U/L (8-55); AST (SGOT) 46 U/L (5-34); Albumin 2.5 g/dL (3.4-4.8); Alkaline Phosphatase 71 U/L (40-110); Anion Gap 15 mmol/L (10-20); BUN (Urea Nitrogen) 10 mg/dL (9.8-20.1); Bilirubin, Total 1.3 mg/dL (0.2-1.2); Calc. Creatinine Clearance 84 mL/min (70-130); Calcium 8.8 mg/dL (7.8-10.44); Carbon Dioxide 20 mmol/L (23-31); Chloride 110 mmol/L (98-107); Estimated GFR 79; Globulin 2.8 g/dL (2.4-3.5); Glucose 99 mg/dL (83-110); Potassium 3.5 mmol/L (3.5-5.1); Protein, Total 5.3 g/dL (5.8-8.1); Sodium 141 mmol/L (136-145)
[2021-10-12] MEDS ORDERED: Fentanyl 100 MCG/2 ML VIAL ONE (10:10)
[2021-10-12] MEDS ORDERED: Lidocaine Viscous Sol 2% 15 ml UD Cup ONE (10:10)
[2021-10-12] MEDS ORDERED: Lidocaine 1% MPF 2 ML VIAL ONE (10:24)
[2021-10-12] MEDS ORDERED: PROPOFOL 200 MG/20 ML VIAL ONE (10:24)
[2021-10-12] MEDS ORDERED: Phenylephrine 10 MG/ML VIAL ONE (10:24)
[2021-10-12] MEDS: Spironolactone 25 MG TAB PO SCH (10:36)
[2021-10-12] MEDS: Aspirin 81 mg Enteric Coated Tablet PO SCH (10:36)
[2021-10-12] MEDS: Ezetimibe 10 MG TAB PO SCH (10:36)
[2021-10-12] MEDS: Amiodarone 200 MG TAB PO SCH ×2 (10:36→21:17)
[2021-10-12] MEDS ORDERED: Promethazine HCl 25 MG/ML VIAL IVPB PRN (10:58)
[2021-10-12] MEDS ORDERED: Ondansetron HCl/PF 4 MG/2 ML Vial IVP PRN (10:58)
[2021-10-12] MEDS ORDERED: Promethazine HCl 25 MG/ML VIAL IM PRN (10:58)
[2021-10-12] MEDS: Atorvastatin Calcium 40 MG TAB PO SCH (21:17)
[2021-10-12] MEDS: Enoxaparin Sodium 30 MG/0.3 ML SYRINGE SC SCH (21:17)
[2021-10-13 04:36] LABS: #Eosinphils 0.1 thou/uL (0.0-0.7); #Lymphocytes 1.6 thou/uL (1.20-3.40); #Monocytes 0.6 thou/uL (0.11-0.59); #Neutrophils 8.4 thou/uL (1.40-6.50); %Basophils 0.3 % (0.0-1.0); %Lymphocytes 15.2 % (21.0-51.0); %Monocytes 5.2 % (0.0-10.0); %Neutrophils 78.3 % (42.0-75.0); Hemoglobin 10.5 g/dL (12.0-16.0); Mean Corpuscular HGB CONC 31.5 g/dL (32.0-36.0); Mean Corpuscular Hemoglobin 28.7 pg (27.0-31.0); Mean Corpuscular Volume 91.3 fL (78.0-98.0); Mean Platelet Volume 8.5 fL (7.4-10.4); Platelet Count 424 thou/uL (130-400); RBC Distribution Width 17.9 % (11.5-14.5); Red Blood Cell (RBC) Count 3.66 mill/uL (4.20-5.40); White Blood Cell (WBC) Count 10.7 thou/uL (4.8-10.8)
[2021-10-13 04:57] LABS: ALT (SGPT) 62 U/L (8-55); AST (SGOT) 36 U/L (5-34); Albumin 2.6 g/dL (3.4-4.8); Alkaline Phosphatase 74 U/L (40-110); Anion Gap 12 mmol/L (10-20); BUN (Urea Nitrogen) 9 mg/dL (9.8-20.1); Bilirubin, Total 1.2 mg/dL (0.2-1.2); Calc. Creatinine Clearance 88 mL/min (70-130); Calcium 9.1 mg/dL (7.8-10.44); Carbon Dioxide 22 mmol/L (23-31); Chloride 110 mmol/L (98-107); Estimated GFR 81; Glucose 97 mg/dL (83-110); Potassium 3.4 mmol/L (3.5-5.1); Protein, Total 5.6 g/dL (5.8-8.1); Sodium 141 mmol/L (136-145)
[2021-10-13] MEDS: Spironolactone 25 MG TAB PO SCH (09:33)
[2021-10-13] MEDS: Ezetimibe 10 MG TAB PO SCH (09:33)
[2021-10-13] MEDS: Amiodarone 200 MG TAB PO SCH ×2 (09:33→21:59)
[2021-10-13] MEDS ORDERED: Potassium Chloride 20 MEQ TAB PO SCH (12:30)
[2021-10-13] MEDS: Atorvastatin Calcium 40 MG TAB PO SCH (21:59)
[2021-10-14 04:29] LABS: #Basophils 0.1 thou/uL (0.0-0.2); #Eosinphils 0.1 thou/uL (0.0-0.7); #Lymphocytes 1.5 thou/uL (1.20-3.40); #Monocytes 0.6 thou/uL (0.11-0.59); #Neutrophils 7.9 thou/uL (1.40-6.50); %Basophils 0.6 % (0.0-1.0); %Eosinophils 1.1 % (0.0-10.0); %Lymphocytes 14.5 % (21.0-51.0); %Monocytes 5.7 % (0.0-10.0); %Neutrophils 78.1 % (42.0-75.0); Hemoglobin 11.3 g/dL (12.0-16.0); Mean Corpuscular HGB CONC 32.1 g/dL (32.0-36.0); Mean Corpuscular Hemoglobin 28.9 pg (27.0-31.0); Mean Platelet Volume 8.3 fL (7.4-10.4); Platelet Count 434 thou/uL (130-400); RBC Distribution Width 17.3 % (11.5-14.5); Red Blood Cell (RBC) Count 3.89 mill/uL (4.20-5.40); White Blood Cell (WBC) Count 10.1 thou/uL (4.8-10.8)
[2021-10-14 04:50] LABS: ALT (SGPT) 52 U/L (8-55); AST (SGOT) 34 U/L (5-34); Albumin 2.6 g/dL (3.4-4.8); Alkaline Phosphatase 75 U/L (40-110); Anion Gap 14 mmol/L (10-20); BUN (Urea Nitrogen) 8 mg/dL (9.8-20.1); Bilirubin, Total 1.2 mg/dL (0.2-1.2); Calc. Creatinine Clearance 82 mL/min (70-130); Calcium 9.3 mg/dL (7.8-10.44); Carbon Dioxide 21 mmol/L (23-31); Chloride 110 mmol/L (98-107); Estimated GFR 79; Globulin 3.2 g/dL (2.4-3.5); Glucose 88 mg/dL (83-110); Potassium 3.8 mmol/L (3.5-5.1); Protein, Total 5.8 g/dL (5.8-8.1); Sodium 141 mmol/L (136-145)
[2021-10-14] MEDS ORDERED: Enoxaparin Sodium 40 MG/0.4 ML SYRINGE SC SCH (09:00)
[2021-10-14] MEDS ORDERED: Aspirin 81 mg Enteric Coated Tablet PO SCH (09:00)
[2021-10-14] MEDS ORDERED: Potassium Chloride 20 MEQ TAB PO SCH (09:15)
[2021-10-14 09:18] VITALS: BMI 30.7
[2021-10-14] MEDS: Amiodarone 200 MG TAB PO SCH (09:40)
[2021-10-14] MEDS: Spironolactone 25 MG TAB PO SCH (09:40)
[2021-10-14] MEDS: Ezetimibe 10 MG TAB PO SCH (09:40)
[2021-10-14 16:28] VITALS: BP 130/68; TEMP 98.2
== END 2021-10-14 18:00 | disposition home health service (06) | DRG 377 ==
LOC: ERS 09:42 → EDBD 09:51 → CCU 09:51 → IMCU/EMU 10-07 19:37 → 2NO 10-10 14:35
PROVIDERS: ADMIT Family Medicine; ATTEND Family Medicine
PROC: 3E043XZ Introduction of Vasopressor into Central Vein, Percutaneous Approach (ICD-10-PCS; principal; 2021-10-01)
PROC: 03HY32Z Insertion of Monitoring Device into Upper Artery, Percutaneous Approach (ICD-10-PCS; 2021-10-01)
PROC: 30233N1 Transfusion of Nonautologous Red Blood Cells into Peripheral Vein, Percutaneous Approach (ICD-10-PCS; 2021-10-01)
PROC: 30233L1 Transfusion of Nonautologous Fresh Plasma into Peripheral Vein, Percutaneous Approach (ICD-10-PCS; 2021-10-01)
PROC: 30233K1 Transfusion of Nonautologous Frozen Plasma into Peripheral Vein, Percutaneous Approach (ICD-10-PCS; 2021-10-01)
PROC: 6A550Z2 Pheresis of Platelets, Single (ICD-10-PCS; 2021-10-01)
PROC: 30233M1 Transfusion of Nonautologous Plasma Cryoprecipitate into Peripheral Vein, Percutaneous Approach (ICD-10-PCS; 2021-10-01)
PROC: 0BH17EZ Insertion of Endotracheal Airway into Trachea, Via Natural or Artificial Opening (ICD-10-PCS; 2021-10-01)
PROC: 5A1945Z Respiratory Ventilation, 24-96 Consecutive Hours (ICD-10-PCS; 2021-10-01)
PROC: 0DH67UZ Insertion of Feeding Device into Stomach, Via Natural or Artificial Opening (ICD-10-PCS; 2021-10-01)
PROC: 3E0G76Z Introduction of Nutritional Substance into Upper GI, Via Natural or Artificial Opening (ICD-10-PCS; 2021-10-01)
PROC: 5A12012 Performance of Cardiac Output, Single, Manual (ICD-10-PCS; 2021-10-01)
PROC: 06HY33Z Insertion of Infusion Device into Lower Vein, Percutaneous Approach (ICD-10-PCS; 2021-10-01)
PROC: 0DB68ZX Excision of Stomach, Via Natural or Artificial Opening Endoscopic, Diagnostic (ICD-10-PCS; 2021-10-12)
DX: K25.4 Chronic or unspecified gastric ulcer with hemorrhage (principal); G93.41 Metabolic encephalopathy; I21.4 Non-ST elevation (NSTEMI) myocardial infarction; I46.9 Cardiac arrest, cause unspecified; K72.00 Acute and subacute hepatic failure without coma; R57.1 Hypovolemic shock; R57.8 Other shock; J96.01 Acute respiratory failure with hypoxia; R57.0 Cardiogenic shock; N17.9 Acute kidney failure, unspecified; E87.2 Acidosis; E87.3 Alkalosis; I50.20 Unspecified systolic (congestive) heart failure; D62 Acute posthemorrhagic anemia; S27.329A Contusion of lung, unspecified, initial encounter; E87.0 Hyperosmolality and hypernatremia; K29.71 Gastritis, unspecified, with bleeding; N18.9 Chronic kidney disease, unspecified; E87.5 Hyperkalemia; R00.1 Bradycardia, unspecified; I48.91 Unspecified atrial fibrillation; I25.5 Ischemic cardiomyopathy; R53.81 Other malaise; E78.5 Hyperlipidemia, unspecified; R79.1 Abnormal coagulation profile; I34.0 Nonrheumatic mitral (valve) insufficiency; E78.00 Pure hypercholesterolemia, unspecified; R73.03 Prediabetes; E87.6 Hypokalemia; I25.10 Atherosclerotic heart disease of native coronary artery without angina pectoris; Z20.822 Contact with and (suspected) exposure to COVID-19; Z79.01 Long term (current) use of anticoagulants; Z90.710 Acquired absence of both cervix and uterus; Z87.891 Personal history of nicotine dependence; Z79.82 Long term (current) use of aspirin; Z78.1 Physical restraint status; Z79.02 Long term (current) use of antithrombotics/antiplatelets
CPT/HCPCS: 31500; 36415; 36416; 36430; 36556; 36600; 51702; 70450; 71045; 71275; 76705; 80053; 80162; 81003; 81015; 82533; 82550; 82553; 82805; 83605; 83735; 83880; 84484; 85025; 85060; 85384; 85610; 85730; 86850; 86900; 86901; 88305; 88312; 88313; 92950; 93005; 93010; 93306; 94002; 94003; 94640; 96365; 96366; 96368; 96375; 96376; C9113; J0282; J1160; J1650; J1815; J1940; J2250; J2370; J2543; J2704; J2916; J3010; J3430; J3480; J3490; J7050; J7070; J7120; J7620; P9012; P9016; P9035; P9048; P9059; Q9967; U0003; U0005